=== PATIENT | female | born 1935 | race Caucasian/White ===

== ENCOUNTER 2019-05-17 13:55 | Emergency (ER) | payer MEDICARE, OTHER ==
[~2019-05-17 13:55] MED LIST: ASPIRIN 81 MG TAB; HEPARIN 5,000 UNIT/1 ML VIAL
[2019-05-17 14:23] LABS: ADD MAN DIFF? NO
[2019-05-17 14:30] LABS: BASOPHILS % 0.3 % (0.0-2.0); EOSINOPHILS % 0.2 % (0.0-7.0); HEMOGLOBIN 10.8 g/dl (12.0-16.0); LYMPHOCYTES # 1.7 10^3/ul (0.8-2.9); LYMPHOCYTES % 18.8 % (15.0-51.0); MEAN CORPUSCULAR HEMOGLOBIN 29.8 pg (29.0-33.0); MEAN CORPUSCULAR HGB CONC 33.8 g/dl (32.0-37.0); MEAN CORPUSCULAR VOLUME 88.4 fl (82.0-101.0); MEAN PLATELET VOLUME 11.1 fl (7.4-10.4); MONOCYTE # 0.7 10^3/ul (0.3-0.9); MONOCYTES % 8.1 % (0.0-11.0); NEUTROPHIL # 6.4 10^3/ul (1.6-7.5); NEUTROPHILS % 72.2 % (39.0-77.0); PLATELET COUNT 255 10^3/UL (140-415); RED BLOOD COUNT 3.62 10^6/ul (4.20-5.40); RED CELL DISTRIBUTION WIDTH 12.6 % (11.5-14.5)
[2019-05-17 14:30] LABS: WHITE BLOOD COUNT 8.9 10^3/ul (4.8-10.8)
[2019-05-17 14:37] LABS: MODE ROOM AIR; MetHgb Venous 0.3 %; Sample Type Blood venous; Site VENOUS LINE; Venous COHb 0 %; Venous Fraction OxyHgb 60.3 %; Venous Oxygen Sat 60.5 mmHG (55.0-75.0); Venous Total Hemglobin 12.4 g/dl
[2019-05-17] MEDS: SOD CHLORIDE 0.9% 600 ML IV (15:06)
[2019-05-17] MEDS: HEPARIN 1000 UNITS/ML 10 ML INJ IV (15:16)
[2019-05-17 15:18] LABS: ANION GAP 16 (5-13); BLOOD UREA NITROGEN 36 mg/dl (7-20); CALCIUM 9.2 mg/dl (8.4-10.2); CARBON DIOXIDE 16 mmol/L (21-31); CHLORIDE 104 mmol/L (97-110); CREATININE 0.91 mg/dl (0.44-1.00); MAGNESIUM 1.5 mg/dl (1.7-2.5); PHOSPHORUS 5.6 mg/dl (2.5-4.9); SODIUM 136 mmol/L (135-144)
[2019-05-17 15:20] LABS: POTASSIUM 5.5 mmol/L (3.5-5.1)
[2019-05-17] MEDS: ASPIRIN 81 MG TAB PO (15:20)
[2019-05-17 15:21] LABS: GLUCOSE 454 mg/dl (70-220)
[2019-05-17 15:48] LABS: ADD UMIC YES; UR ASCORBIC ACID NEGATIVE (NEGATIVE); UR BACTERIA FEW /HPF (NONE SEEN); UR BILIRUBIN (Dip) NEGATIVE (NEGATIVE); UR BLOOD (Dip) NEGATIVE (NEGATIVE); UR CLARITY CLOUDY (CLEAR); UR COLOR YELLOW (YELLOW); UR GLUCOSE (Dip) 3+ mg/dL (NEGATIVE); UR KETONES (Dip) TRACE mg/dL (NEGATIVE); UR LEUKOCYTE ESTERASE (Dip) 1+ Leu/ul (NEGATIVE); UR MUCUS MANY /HPF (NONE SEEN); UR NITRITE (Dip) NEGATIVE (NEGATIVE); UR NONSQUAMOUS EPITHELIAL CELL 2 /HPF (NONE SEEN); UR RBC 2 /HPF (0-5); UR SPECIFIC GRAVITY (Dip) 1.018 (1.003-1.030); UR SQUAMOUS EPITHELIAL CELL MODERATE /HPF (FEW); UR TOTAL PROTEIN (Dip) 1+ mg/dl (NEGATIVE); UR UROBILINOGEN (Dip) NEGATIVE (NEGATIVE); UR WBC 21 /HPF (0-5)
== END 2019-05-17 16:04 | disposition short-term general hospital (02) ==
LOC: E/R 13:55
DX: I21.3 ST elevation (STEMI) myocardial infarction of unspecified site (principal); E87.5 Hyperkalemia; E86.0 Dehydration; E11.65 Type 2 diabetes mellitus with hyperglycemia; N39.0 Urinary tract infection, site not specified; D64.9 Anemia, unspecified; I10 Essential (primary) hypertension
CPT/HCPCS: 36415; 71045; 80048; 81001; 82803; 82962; 83735; 84100; 84484; 85025; 93005; 96374; 99285-25